=== PATIENT | female | born 1965 | race Caucasian/White ===

== ENCOUNTER → 2020-05-13 12:02 | Outpatient (CLI) | payer OTHER, SELFPAY ==
--- NOTE | 2020-05-13 12:05 | DI.MRI.S_ITS ---
PROCEDURE: MR KNEE RT WO CON INDICATIONS: Pain in right knee TECHNIQUE: Noncontrast sagittal PD fast spin echo and T2 fast spin echo with fat saturation, sagittal 3-D FLASH with fat saturation; coronal T1 spin echo and PD fast spin echo with fat saturation, and axial PD fast spin echo with fat saturation through the knee. COMPARISON: [facility], MR, MR KNEE RIGHT WITHOUT CONTRAST, 08/04/2018, 16:46. [facility], CR, XR KNEE 4+ VIEWS RIGHT, 05/05/2020, 16:21. FINDINGS: Image quality: Excellent. Menisci: Medial extrusion of the medial meniscus is present, as before. There is increased, moderate to severe high T2 signal intensity within the anterior horn, body, and posterior horn medial meniscus, demonstrating superior and inferior articular surface extension, indicating progressive complex tearing. There is progressive amorphous high signal intensity within the anterior horn lateral meniscus, demonstrating superior articular surface extension, indicating degenerative tearing, as before. Cruciate ligaments: The anterior and posterior cruciate ligaments appear intact. There is increased T2 signal elevation along the course of the anterior cruciate ligament, consistent with progressive myxoid degeneration. Mild T2 signal evaluation within the posterior cruciate ligament is present, as before, also consistent with myxoid degeneration. Medial structures: The medial collateral ligament appears intact. Visualized portions of the pes anserinus tendons appear normal. No abnormal bursal fluid. Lateral structures: The lateral collateral ligament, long and short heads of the biceps femoris tendon appear intact. The popliteus tendon appears normal. Iliotibial band appears normal. Anterior structures: The quadriceps and patellar tendons appear intact. Mild T2 signal elevation within the patellar tendon at the patellar insertion site. Mild lateral patellar subluxation. No femoral trochlear dysplasia or ventral trochlear prominence. No edema in the infrapatellar fat pad. Bones and cartilage: No bone marrow contusions or fractures. Moderate tricompartmental periarticular osteophyte formation. Multifocal small regions of degenerative marrow edema within the mid and anterior weight-bearing aspects of the medial femoral condyle and medial tibial plateau, as well as the mid weight-bearing aspect of the lateral tibial plateau. Severe articular cartilage loss diffusely overlies the weight-bearing aspects of the medial femoral condyle and medial tibial plateau. Moderate articular cartilage loss diffusely overlies the weight-bearing aspects of the lateral femoral condyle and lateral tibial plateau, with superimposed moderate to high-grade articular cartilage loss overlying the posterior weight-bearing aspect of the lateral femoral condyle. There is severe articular cartilage loss overlying the lateral aspect of the lateral patellar facet. Joint space: There is a small knee joint effusion and a trace Dinh's cyst. Normal appearing synovial plicae are incidentally noted. IMPRESSION: 1. Progressive medial meniscal tearing and extrusion. 2. No change in degenerative tearing of the lateral meniscus. 3. 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 No change in myxoid degeneration of the posterior cruciate ligament. 4. Tricompartmental osteoarthritis with associated articular cartilage loss. 5. Knee joint effusion and Dinh's cyst. 6. Patellar tendinitis. Dictated by: Nestor Casiano M.D. on 05/13/2020 at 13:23 Approved by: Nestor Casiano M.D. on 05/13/2020 at 13:54
== END ==
PROVIDERS: PCP Nurse Practitioner Family; Referring Provider Orthopaedic Surgery; Visit Provider Orthopaedic Surgery
DX: M25.561 Pain in right knee (principal); S83.241A Other tear of medial meniscus, current injury, right knee, initial encounter; S83.281A Other tear of lateral meniscus, current injury, right knee, initial encounter; M17.11 Unilateral primary osteoarthritis, right knee; M25.461 Effusion, right knee; M76.51 Patellar tendinitis, right knee
CPT/HCPCS: 73721

== ENCOUNTER → 2020-06-11 07:28 | Outpatient (CLI) | payer OTHER, SELFPAY ==
[2020-06-11 07:35] LABS: RBC Urine None Seen (0-5/HPF); WBC Urine None Seen (0-5/HPF)
[2020-06-11 08:13] LABS: Appearance Urine UA CLEAR; Bilirubin Urine UA NEGATIVE (NEGATIVE); Color Urine UA YELLOW; Glucose Urine UA NEGATIVE (Negative); Ketones Urine UA NEGATIVE (NEGATIVE); Leukocyte Esterase Urine UA NEGATIVE (NEGATIVE); Nitrite Urine UA NEGATIVE (Negative); Occult Blood Urine UA NEGATIVE (Negative); Protein Urine UA NEGATIVE (Negative); Urobilinogen Urine UA 0.2 E.U./dL (0.2)
[2020-06-11 08:14] LABS: pH Urine UA 7.5 (4.5-8.0)
[2020-06-11 08:18] LABS: Add Manual Diff / Slide Review NO; Basophils Absolute Auto 0 /uL (0-100); Basophils Percent Auto 0.6 % (0-2); Eosinophils Absolute Auto 200 /uL (0-450); Eosinophils Percent Auto 3.7 % (2-4); Hematocrit 41.8 % (36-46); Hemoglobin 14.1 g/dL (12.0-16.0); Lymphocytes Absolute Auto 2100 /uL (1100-4500); Lymphocytes Percent Auto 31.8 % (25-40); Mean Corpuscular HGB Conc 33.7 % (30-36); Mean Corpuscular Hemoglobin 30.9 PG (26-34); Mean Corpuscular Volume 91.8 fL (80-100); Monocytes Absolute Auto 400 /uL (0-900); Monocytes Percent Auto 5.6 % (3-14); Neutrophils Absolute Auto 3900 /uL (1500-7000); Neutrophils Percent Auto 58.3 % (50-75); Platelet Count 226 X10^3/uL (150-400); Red Blood Cell Count 4.55 X10^6/uL (4.0-5.2); Red Cell Distribution Width 12.8 % (11.6-14.8); White Blood Cell Count 6.6 X10^3/uL (4.5-11.0)
[2020-06-11 08:20] LABS: Bacteria Urine Occasional (0-1); Culture Indicated Urine Cult Not Indicated; Hemoglobin A1C% w Est Avg Glu 6.5 % (4.0-6.0); Squamous Epithelial Cell Urine 0-1 /HPF (0-5/HPF)
[2020-06-11 08:35] LABS: Blood Urea Nitrogen 19 mg/dL (7-17); Calcium 9.7 mg/dL (8.4-10.2); Carbon Dioxide 27 mmol/L (22-32); Chloride 102 mmol/L (98-107); Estimated Glomerular Filt Rate > 60.0 mL/min (>60); Glucose 118 mg/dL (70-100); HEMOLYSIS < 15 (0-50); Potassium 4.3 mmol/L (3.4-5.1); Sodium 135 mmol/L (137-145)
== END ==
PROVIDERS: PCP Student in an Organized Health Care Education/Training Program; Referring Provider Orthopaedic Surgery; Visit Provider Orthopaedic Surgery
DX: Z01.818 Encounter for other preprocedural examination (principal); Z01.812 Encounter for preprocedural laboratory examination; R73.9 Hyperglycemia, unspecified; N39.0 Urinary tract infection, site not specified
CPT/HCPCS: 36415; 80048; 81001; 83036; 85025; 93005

== ENCOUNTER 2020-07-01 17:46 | Emergency (ER) | payer OTHER, SELFPAY ==
[2020-07-01 18:00] VITALS: BP 167/82; PULSE 95; RESP 17; TEMP 36.2; O2SAT 96; BMI 39.1
--- NOTE | 2020-07-01 18:15 | DI.RAD.S_ITS ---
PROCEDURE: XR KNEE LT 3V INDICATIONS: twist/pop in knee TECHNIQUE: 3 views of the knee were acquired. COMPARISON: [facility], , KNEE 3V LEFT, 06/09/2014, 15:21. FINDINGS: Bones: No fractures or dislocations. No suspicious bony lesions. Moderate tricompartmental osteoarthritis. Soft tissues: No joint effusion. No suspicious soft tissue calcifications. IMPRESSION: No fracture. No acute osseous lesion. If symptoms and/or clinical suspicion for pathology persists, further assessment with repeat radiographs (7-10 days) or advanced imaging (e.g. CT, MRI or bone scan) should be considered. Dictated by: Nati Solano MD, PhD on 07/01/2020 at 18:27 Approved by: Nati Solano MD, PhD on 07/01/2020 at 18:27
--- NOTE | 2020-07-01 18:54 | ED.LOWEXIN ---
HPI - Extremity Injury (Lower) <PAM Suero-BC - Last Filed: 07/01/20 20:02> General Chief Complaint: Extremity Injury, Lower Stated Complaint: LT KNEE INJURY Time Seen by Provider: 07/01/20 18:40 Source: patient and family Mode of arrival: Wheelchair Limitations: no limitations History of Present Illness HPI Narrative: The patient is a 54-year-old female nonsmoker with history of arthroscopic knee surgery for ?meniscal clean up who presents with a chief complaint of left knee pain. She states that she took a step at work, landed on her left foot and felt pain and a pop in her left knee. Subsequently she kept working on her bilateral feet. She states this happened this morning. She took Tylenol at 11:00 a.m., took Aleve before that. She did not fall, she felt sudden pain and instability. She notes that she had a history of her ?clean up surgery on her left knee. Related Data Home Medications Medication Instructions Recorded Confirmed [INJ B 12] #0 06/20/09 lovastatin HS #0 06/20/09 Previous Rx's Medication Instructions Recorded ketorolac 10 mg PO TID PRN #15 tab 07/01/20 lidocaine 1 patch TOPICAL DAILY PRN #15 ea 07/01/20 tramadol 50 mg PO TID PRN #10 tab 07/01/20 Allergies Allergy/AdvReac Type Severity Reaction Status Date / Time lisinopril AdvReac Severe Cough Verified 07/01/20 18:57 Review of Systems <VINH Suero - Last Filed: 07/01/20 20:02> Review of Systems Narrative: GENERAL: Denies chills, fatigue, malaise, fever, sweats. HEENT: Denies sinus pain, ear pain, sore throat, difficulty swallowing, dizziness. RESPIRATORY: Denies dyspnea, cough, wheezing, hemoptysis, sputum. CARDIOVASCULAR: Denies chest pain, palpitations, orthopnea, edema, GASTROINTESTINAL: Denies nausea, vomiting, abdominal pain, diarrhea, constipation, melena. : Denies dysuria, frequency, incontinence, hematuria, urinary retention. MUSCULOSKELETAL: denies weakness, joint pain, or bony pain SKIN: Denies rash, skin lesions, or other NEUROLOGIC: Denies weakness, headache, numbness, change in speech, confusion, seizures, incoordination. PSYCHIATRIC: No concerning psychosocial issues. 12 point review of systems is negative except for those stated above Patient History <SALLY Suero - Last Filed: 07/01/20 20:02> Social History Smoking Status: Never smoker Smoking Status: Never smoker alcohol intake frequency: 0-2 drinks per day Substance Use Type: does not use Exam <SALLY Suero - Last Filed: 07/01/20 20:02> Narrative Exam Narrative: GENERAL: This is a well-nourished, well-developed patient, no acute distress EYES: Pupils equal round and reactive. Extraocular motions intact. No scleral icterus. No injection or drainage. ENT: Nose without bleeding, purulent drainage or septal hematoma. Wearing a mask. Airway patent. NECK: Trachea midline. No JVD or lymphadenopathy. Supple, nontender, no meningeal signs. CARDIOVASCULAR: Regular rate and rhythm RESPIRATORY: No cough. No increased respiratory effort. No accessory muscle use. EXTREMITIES: Left knee with reduced fraction, able to extend, able to lift leg off of stretcher. Patient has laxity noted on varus stress test, no laxity on valgus. Has been weight-bearing all day. Positive pedal pulses. BACK: Nontender without deformity or crepitance. No flank tenderness. NEURO: AOx3. SKIN: No rash or erythema on visible skin. No erythema ecchymosis laceration or abrasion noted left knee. Initial Vital Signs Initial Vital Signs: Vital Signs Temperature 97.2 F L 07/01/20 18:00 Pulse Rate 95 H 07/01/20 18:00 Respiratory Rate 17 07/01/20 18:00 Blood Pressure 167/82 H 07/01/20 18:00 Pulse Oximetry 96 07/01/20 18:00 <Amol uLtz DO - Last Filed: 07/01/20 20:19> Initial Vital Signs Initial Vital Signs: Vital Signs Temperature 97.2 F L 07/01/20 18:00 Pulse Rate 95 H 07/01/20 18:00 Respiratory Rate 17 07/01/20 18:00 Blood Pressure 167/82 H 07/01/20 18:00 Pulse Oximetry 96 07/01/20 18:00 Procedures <SALLY Suero - Last Filed: 07/01/20 20:02> Orthopedic Splinting/Casting Injury #1: Side: left Lower Extremity Injury Location: knee Lower Extremity Immobilizer: Philipp wrap Other Orthopedic Equipment: crutches Post splinting neuro exam: intact Post splinting vascular exam: intact Placed by: Nursing Scores <SALLY Suero - Last Filed: 07/01/20 20:02> GCS Ronit coma scale eye opening: Spontaneous [place] coma scale verbal response: Orientated [place] coma scale motor response: Obey commands Ronit coma scale total score: 15 Course <SALLY Suero - Last Filed: 07/01/20 20:02> Orders Ordered: ED Orders 07/01/20 18:15 XR knee LT 3V Stat Discontinued Medications Ketorolac Tromethamine (Ketorolac 60 Mg/2 Ml Vial) 30 mg IM NOW ONE Stop: 07/01/20 18:56 Last Admin: 07/01/20 19:22 Dose: 30 mg Documented by: ABDULKADIR Lidocaine (Lidocaine Patch 1 Each Adh..Patch) 1 each TOP NOW ONE Stop: 07/01/20 18:56 Last Admin: 07/01/20 19:21 Dose: 1 each Documented by: ABDULKADIR Lidocaine (Remove Lidocaine Patch) 1 each TOP 0700 ABRAHAM Tramadol HCl (Tramadol 50 Mg Tablet) 50 mg PO NOW ONE Stop: 07/01/20 18:56 Last Admin: 07/01/20 19:22 Dose: 50 mg Documented by: ABDULKADIR Vital Signs Vital signs: Vital Signs - 8 hr 07/01/20 18:00 07/01/20 19:47 Temperature 97.2 F L Pulse Rate 95 H 75 Respiratory Rate 17 16 Blood Pressure 167/82 H 166/79 H Pulse Oximetry 96 98 <Amol Lutz DO - Last Filed: 07/01/20 20:19> Orders Ordered: ED Orders 07/01/20 18:15 XR knee LT 3V Stat Discontinued Medications Ketorolac Tromethamine (Ketorolac 60 Mg/2 Ml Vial) 30 mg IM NOW ONE Stop: 07/01/20 18:56 Last Admin: 07/01/20 19:22 Dose: 30 mg Documented by: ABDULKADIR Lidocaine (Lidocaine Patch 1 Each Adh..Patch) 1 each TOP NOW ONE Stop: 07/01/20 18:56 Last Admin: 07/01/20 19:21 Dose: 1 each Documented by: ABDULKADIR Lidocaine (Remove Lidocaine Patch) 1 each TOP 0700 COUNTS INCLUDE 234 BEDS AT [facility] Tramadol HCl (Tramadol 50 Mg Tablet) 50 mg PO NOW ONE Stop: 07/01/20 18:56 Last Admin: 07/01/20 19:22 Dose: 50 mg Documented by: ABDULKADIR Vital Signs Vital signs: Vital Signs - 8 hr 07/01/20 18:00 07/01/20 19:47 Temperature 97.2 F L Pulse Rate 95 H 75 Respiratory Rate 17 16 Blood Pressure 167/82 H 166/79 H Pulse Oximetry 96 98 MDM - Extremity Injury (Lower) <PAM Suero-BC - Last Filed: 07/01/20 20:02> Imaging Data Extremity x-ray #1: Radiologist's Impression: [address] [place] [id number] ReportSigned Patient: Naomi Mcleod RMR#: [id number]: [id number]:[id number]/Sex: 54 / FDate of Service: 07/01/20Loc: EDAccession Number: [id number] Procedure: XR knee LT 3V Ordering Provider: Amol Lutz D.O. PROCEDURE: XR KNEE LT 3V INDICATIONS: twist/pop in knee TECHNIQUE: 3 views of the knee were acquired. COMPARISON: [facility], , KNEE 3V LEFT, 06/09/2014, 15:21. FINDINGS: Bones: No fractures or dislocations. No suspicious bony lesions. Moderate tricompartmental osteoarthritis. Soft tissues: No joint effusion. No suspicious soft tissue calcifications. IMPRESSION: No fracture. No acute osseous lesion. If symptoms and/or clinical suspicion for pathology persists, further assessment with repeat radiographs (7-10 days) or advanced imaging (e.g. CT, MRI or bone scan) should be considered. Dictated by: Nati Solano MD, PhD on 07/01/2020 at 18:27 Approved by: Nati Solano MD, PhD on 07/01/2020 at 18:27 [facility] Narrative Medical decision making narrative: The patient is a 54-year-old female who presents with a chief complaint of left knee pain after stepping off a step At work today. She is neurovascular intact throughout her stay in the ER. X-ray is no acute findings, however given her symptoms decreased range of motion, I am concerned about possible soft tissue injury. She feels improved after the above-stated therapies. She was placed in an Philipp wrap for comfort, I discussed not combining NSAIDs, follow-up with primary care provider/L and I provider she may need further evaluation and/or advanced imaging. Discussed at length coming back to ER for acute concerns. Patient has no questions or concerns upon discharge states understanding return precautions as well as follow-up care. Discharge Plan Departure Patient Disposition: Home Clinical Impression: Sprain and strain of unspecified site of knee and leg, Knee swelling Instructions: DI for Knee Sprain, How To Perform RICE (Rest, Ice, Compress, Elevate), DI for Knee Pain, How to Apply an Elastic Wrap on Knee Activity Restrictions/Additional Instructions: As I discussed, your x-ray shows no acute fracture. This does not rule out a soft tissue injury such as a ligament or tendon injury. It is important that you follow up with primary care provider, especially if worsening or no improvement. There can be fractures that did not show up on initial x-ray. As discussed, please follow-up with a primary care provider or [employer] provider. I sent prescriptions to [facility] in [place]. I have given you a prescription of Toradol. This is an NSAID. Do not combine it with other NSAIDs such as Aleve or ibuprofen. I suggest taking it with some food, as it can irritate your stomach. I have given you a prescription of a narcotic for pain. Be aware that this can be constipating and sedating. I encouraged taking with a stool softener, pushing fluids and fiber. Do not take and drive, operate heavy machinery, etc. Do not combine it with any other sedating substances such as alcohol. The combination of narcotics and alcohol and/or other sedatives can be lethal. Please be aware that we do not provide refills of controlled substances in the emergency department. Please follow up with your primary care provider. I also sent in a prescription of lidocaine patches. Do not use heat over these patches. I have given you a note for work. Please come back to the emergency department for any acute concerns. Prescriptions: New ketorolac 10 mg tablet 10 mg PO TID PRN (Reason: pain) Qty: 15 RF: 0 lidocaine 5 % adhesive patch,medicated 1 patch topical DAILY PRN (Reason: pain) Qty: 15 RF: 0 tramadol 50 mg tablet 50 mg PO TID PRN (Reason: pain) Qty: 10 RF: 0 No Action lovastatin 10 MG tablet HS Qty: 0 RF: 0 [INJ B 12] Qty: 0 RF: 0 Referrals: Geovanna Mota MD [Primary Care Provider] - Stand Alone Forms: Work Release Note <Amol Lutz, - Last Filed: 07/01/20 20:19> Cosign ED Attending Cosignature Attestation: Dr Lutz Co-Sign Statement: I was available for consultation during this patient's emergency department visit. This chart is signed by myself for administrative purposes only. I did not have direct contact with this patient during this visit. They were seen independently by the APC.
[2020-07-01] MEDS: LIDOCAINE PATCH 1 EACH ADH..PATCH TOP (19:21)
[2020-07-01] MEDS: TRAMADOL 50 MG TABLET PO (19:22)
[2020-07-01] MEDS: KETOROLAC 60 MG/2 ML VIAL 30 MG IM (19:22)
[2020-07-01 19:47] VITALS: BP 166/79; PULSE 75; RESP 16; O2SAT 98
== END 2020-07-01 19:57 | disposition home or self-care (01) ==
PROVIDERS: Emergency Provider Nurse Practitioner Family; PCP Student in an Organized Health Care Education/Training Program
DX: S83.92XA Sprain of unspecified site of left knee, initial encounter (principal); S96.912A Strain of unspecified muscle and tendon at ankle and foot level, left foot, initial encounter; W22.8XXA Striking against or struck by other objects, initial encounter; Y99.0 Civilian activity done for income or pay
CPT/HCPCS: 73562; 96372; 99283; 99284; J1885

== ENCOUNTER → 2021-05-07 08:42 | Outpatient (CLI) | payer OTHER, SELFPAY ==
[2021-05-07 09:50] LABS: Appearance Urine UA SL CLOUDY; Bilirubin Urine UA NEGATIVE (NEGATIVE); Color Urine UA YELLOW; Glucose Urine UA NEGATIVE (Negative); Ketones Urine UA TRACE (NEGATIVE); Leukocyte Esterase Urine UA NEGATIVE (NEGATIVE); Nitrite Urine UA NEGATIVE (Negative); Occult Blood Urine UA NEGATIVE (Negative); Protein Urine UA NEGATIVE (Negative); Specific Gravity Urine UA >=1.030 (1.000-1.035); Urobilinogen Urine UA 0.2 E.U./dL (0.2)
[2021-05-07 10:02] LABS: Add Manual Diff / Slide Review NO; Basophils Absolute Auto 0 /uL (0-100); Basophils Percent Auto 0.4 % (0-2); Eosinophils Absolute Auto 100 /uL (0-450); Eosinophils Percent Auto 1.9 % (2-4); Hematocrit 40.5 % (36-46); Hemoglobin 13.7 g/dL (12.0-16.0); Lymphocytes Absolute Auto 1900 /uL (1100-4500); Lymphocytes Percent Auto 31.2 % (25-40); Mean Corpuscular HGB Conc 33.8 % (30-36); Mean Corpuscular Hemoglobin 30.1 PG (26-34); Mean Corpuscular Volume 89.3 fL (80-100); Monocytes Absolute Auto 500 /uL (0-900); Monocytes Percent Auto 8.5 % (3-14); Neutrophils Absolute Auto 3500 /uL (1500-7000); Platelet Count 226 X10^3/uL (150-400); Red Blood Cell Count 4.54 X10^6/uL (4.0-5.2); Red Cell Distribution Width 12.9 % (11.6-14.8); White Blood Cell Count 6.1 X10^3/uL (4.5-11.0)
[2021-05-07 10:19] LABS: BUN Creatinine Ratio 25.3 (6-22); Blood Urea Nitrogen 20 mg/dL (7-17); Calcium 10.1 mg/dL (8.4-10.2); Carbon Dioxide 31 mmol/L (22-32); Chloride 104 mmol/L (98-107); Estimated Glomerular Filt Rate > 60.0 mL/min (>60); Glucose 112 mg/dL (70-100); HEMOLYSIS < 15 (0-50); Hemoglobin A1C% w Est Avg Glu 6.6 % (4.0-6.0); Sodium 139 mmol/L (137-145)
[2021-05-07 11:21] LABS: RBC Urine None Seen (0-5/HPF); WBC Urine 1-5/HPF (0-5/HPF)
[2021-05-07 11:22] LABS: Bacteria Urine Moderate (10-30); Calcium Oxalate Crystals Urine Many; Culture Indicated Urine Cult Not Indicated; Squamous Epithelial Cell Urine 1-5 /HPF (0-5/HPF)
== END ==
PROVIDERS: PCP Student in an Organized Health Care Education/Training Program; Referring Provider Orthopaedic Surgery; Visit Provider Orthopaedic Surgery
DX: Z01.818 Encounter for other preprocedural examination (principal); Z01.812 Encounter for preprocedural laboratory examination; R73.9 Hyperglycemia, unspecified; N39.0 Urinary tract infection, site not specified
CPT/HCPCS: 36415; 80048; 81001; 83036; 85025; 93005